=== PATIENT | female | born 1980 | race Caucasian/White ===

== ENCOUNTER 2017-10-12 05:10 | Emergency (ER) | payer OTHER ==
[~2017-10-12] VITALS: Ht 160 cm; Wt 106.6 kg
[~2017-10-12 05:10] MED LIST: ALLEGRA ALLERG180 MG PO; AUGMENTIN 875-1 EACH PO; AZITHROMYCIN250 MG PO; CELEXA20 MG PO; CHERATUSSIN AC118 ML PO; COMBIVENT RESPIM4 GM INH; GUAIATUSSIN AC10 ML PO; IBUPROFEN800 MG PO; KEFLEX500 MG PO; MELATONIN3 MG PO; MUCINEX FAST-M1 EAC9 PO; MUCINEX600 MG PO; PERCOCET 5-3251 EACH PO; PREDNISONE20 MG PO; PROVENTIL HFA6.7 GM INH; ROBAXIN-750750 MG PO; TRAMADOL HCL50 MG PO; VITAMIN D250000 UNIT PO; VITAMIN D50000 UNI1 PO
[2017-10-12] MEDS ORDERED: METFORMIN HCL500 MG PO (05:19)
[2017-10-12] MEDS ORDERED: LEVOTHYROXINE25 MCG PO (05:19)
== END 2017-10-12 05:43 | disposition home or self-care (01) ==
LOC: ED 05:10
DX: J11.1 Influenza due to unidentified influenza virus with other respiratory manifestations (principal); J45.909 Unspecified asthma, uncomplicated; Z87.891 Personal history of nicotine dependence; Z88.5 Allergy status to narcotic agent; Z79.899 Other long term (current) drug therapy
CPT/HCPCS: 99282

== ENCOUNTER 2018-10-08 13:29 | Emergency (ER) | payer OTHER ==
[~2018-10-08] VITALS: Ht 160 cm; Wt 102.1 kg
[~2018-10-08 13:29] MED LIST changes: +LEVOTHYROXINE25 MCG PO; +METFORMIN HCL500 MG PO
--- OUTSIDE RECORDS SUMMARY | 2018-10-08 13:32 | XMS ---
PreManage Notification: BRENDAN MOURA Security Blasting Entryman Events No recent Security Events currently on file CRITERIA MET - Group Notification - [facility] - Has Care Guidelines CARE PROVIDERS There are no care providers on record at this time. Guidelines Source: [facility] Guidelines Date: 03/20/2017 Care Coordination: ENCOURAGE PATIENT TO USE PCP FOR FOLLOW UP AND NON-EMERGENT PROBLEMS. GIVE PATIENT THIS ADJUNCT ART HISTORY INSTRUCTOR NAME AND NUMBER FOR HELP AND QUESTIONS. KRISTIE BELLO, HORTICULTURAL WORKERABSTRACT WRITER [facility] [phone] E.D. VISIT COUNT (12 MO.) 2 [facility]. TOTAL 2 NOTE: Visits indicate total known visits. ED/UCC VISIT TRACKING (12 MO.) 10/08/2018 13:29 [place]EL [place] TYPE: Emergency COMPLAINT: - MEDICAL CLEARANCE 10/12/2017 05:11 [place] TYPE: Emergency COMPLAINT: - COUGH,FEVER,NAUSEA DIAGNOSES: - Personal history of nicotine dependence - Influenza due to unidentified influenza virus with other respiratory manifestations - Fever, unspecified - Unspecified asthma, uncomplicated - Allergy status to narcotic agent status - Other termite control technician (current) drug therapy INPATIENT VISIT TRACKING (12 MO.) No inpatient visits to display in this time frame [email or web address]
[2018-10-08] MEDS ORDERED: PAXIL20 MG PO (13:41)
== END 2018-10-08 17:13 | disposition home or self-care (01) ==
LOC: ED 13:29
DX: Z00.8 Encounter for other general examination (principal); F41.9 Anxiety disorder, unspecified; J45.909 Unspecified asthma, uncomplicated; F17.200 Nicotine dependence, unspecified, uncomplicated; Z88.5 Allergy status to narcotic agent; Z79.899 Other long term (current) drug therapy
CPT/HCPCS: 36415; 80053; 80176; 81001; 84439; 84443; 84703; 85025; 99284; G0480

== ENCOUNTER 2019-08-17 09:57 | Emergency (ER) | payer OTHER ==
[~2019-08-17] VITALS: Ht 160 cm; Wt 102.1 kg
--- OUTSIDE RECORDS SUMMARY | ~2019-08-17 | XMS | Encounter Summary ---
Demographics + + + | Address | [address] | | | [place] [address] | + + + | Home Phone | | + + + | Preferred Language | Unknown | + + + | Marital Status | Single | + + + | Yarsani Affiliation | Unknown | + + + | Race | Unknown | + + + | Ethnic Group | Unknown | + + + Author + + + | Author | [facility] | | | and Freddyana | + + + | Organization | [facility] | | | and Freddyana | + + + | Address | Unknown | + + + | Phone | Unavailable | + + + Support + + +---------+ + | Name | Relationship | Address | Phone | + + +---------+ + | Latrice Rodríguez | ECON | Unknown | | + + +---------+ + | Chyna Mesa | ECON | Unknown | | + + +---------+ + Care Team Providers + +------+ + | Care Grassroots Organizer Name | Role | Phone | + +------+ + PCP | Unavailable | + +------+ + Encounter Details +--------+ + + + + | Date | Type | Department | Care Team | Description | +--------+ + + + + | 02/14/ | Hospital | [facility] | | | | 2008 | Encounter | MED CTR MP INTRA OP | | | | | | [address] | | | | | | [place] | | | | | | [address] | | | | | | [phone] | | | +--------+ + + + + Social History + +-------+ +--------+------+ | Tobacco Use | Types | Packs/Day | Years | Date | | | | | Used | | + +-------+ +--------+------+ | Never Assessed | | | | | + +-------+ +--------+------+ + + + | Sex Assigned at | Date Recorded | | | | + + + | Not on file | | + + + + + + + | Job Start Date | Occupation | Industry | + + + + | Not on file | Not on file | Not on file | + + + + + + + + | Travel History | Travel Start | Travel End | + + + + + + | No recent travel history available. | + + documented as of this encounter Plan of Treatment Not on filedocumented as of this encounter Visit Diagnoses Not on filedocumented in this encounter"
--- OUTSIDE RECORDS SUMMARY | ~2019-08-17 | XMS | Encounter Summary ---
Demographics + + + | Address | [address] | | | [place] [address] | + + + | Home Phone | | + + + | Preferred Language | Unknown | + + + | Marital Status | Single | + + + | Sabianist Affiliation | Unknown | + + + | Race | Unknown | + + + | Ethnic Group | Unknown | + + + Author + + + | Author | [facility] | | | and [place]dy[place] | + + + | Organization | [facility] | | | and Freddyana [...] Team Providers + +------+ + | Care Pantry Worker Name | Role | Phone | + +------+ + PCP | Unavailable | + +------+ + Encounter Details +--------+ + + + + | Date | Type | Department | Care Team | Description | +--------+ + + + + | 12/07/ | Hospital | [facility] | Sergio Del Rosario, | | | 2006 | Encounter | MED CTR XRAY [address] | MD [address] | | | | | [place] | [place], [place] | | | | | [place] [address] | [id number] | | | | | [phone] | | | +--------+ + + + [...]
--- OUTSIDE RECORDS SUMMARY | ~2019-08-17 | XMS | Encounter Summary ---
Demographics + + + | Address | [address] | | | [place] [address] | + + + | Home Phone | | + + + | Preferred Language | Unknown | + + + | Marital Status | Single | + + + | Hoahaoism Affiliation | Unknown | + + + | Race | Unknown | + + + | Ethnic Group | Unknown | + + + Author + + + | Author | [facility] | | | and Freddyana | + + + | Organization | [facility] | | | and Freddyana [...] Team Providers + +------+ + | Care Quality Assurance Monitor Body Name | Role | Phone | + +------+ + PCP | Unavailable | + +------+ + Encounter Details +--------+ + + + + | Date | Type | Department | Care Team | Description | +--------+ + + + + | 12/07/ | Hospital | [facility] | Sergio Del Rosario, | | | 2006 | Encounter | MED CTR XRAY [address] | MD [address] | | | | | [place] | [place], [place] | | | | | [place] [address] | [id number] | | | | | [phone] | | | +--------+ + + + [...]
--- OUTSIDE RECORDS SUMMARY | ~2019-08-17 | XMS | Encounter Summary ---
Demographics + + + | Address | [address] | | | [place] [address] | + + + | Home Phone | | + + + | Preferred Language | Unknown | + + + | Marital Status | Single | + + + | Methodist Affiliation | Unknown | + + + | Race | Unknown | + + + | Ethnic Group | Unknown | + + + Author + + + | Author | [facility] | | | and Freddyana | + + + | Organization | [facility] | | | and [...] Team Providers + +------+ + | Care School Program Director Name | Role | Phone | + +------+ + PCP | Unavailable | + +------+ + Encounter Details +--------+ + + + + | Date | Type | Department | Care Team | Description | +--------+ + + + + | 12/04/ | Hospital | [facility] | Sergio Del Rosario, | | | 2006 | Encounter | MED CTR GENERIC OP | MD [address] | | | | | CONV DEPT [address] | [place], [place] | | | | | [place], | [address] | | | | | [place] [address] | | | | | | [phone] | | | +--------+ + + + [...]
--- OUTSIDE RECORDS SUMMARY | ~2019-08-17 | XMS | Encounter Summary ---
Demographics + + + | Address | [address] | | | [place] [address] | + + + | Home Phone | | + + + | Preferred Language | Unknown | + + + | Marital Status | Single | + + + | Spiritism Affiliation | Unknown | + + + | Race | Unknown | + + + | Ethnic Group | Unknown | + + + Author + + + | Author | [facility] | | | and Freddy[place] | + + + | Organization | [facility] | | | and Freddyana [...] Team Providers + +------+ + | Care Process Improvement Manager Name | Role | Phone | + +------+ + PCP | Unavailable | + +------+ + Encounter Details +--------+ + + + + | Date | Type | Department | Care Team | Description | +--------+ + + + + | 12/04/ | Hospital | [facility] | Sregio Del Rosario, | | | 2006 | Encounter | MED CTR GENERIC OP | MD [address] | | | | | CONV DEPT [address] | [place], [place] | | | | | [place], | [address] | | | | | [place] [address] | | | | | | [phone] | | | +--------+ + + + [...]
--- OUTSIDE RECORDS SUMMARY | ~2019-08-17 | XMS | Encounter Summary ---
Demographics + + + | Address | [address] | | | [place] [address] | + + + | Home Phone | | + + + | Preferred Language | Unknown | + + + | Marital Status | Single | + + + | Confucianist Affiliation | Unknown | + + + | Race | Unknown | + + + | Ethnic Group | Unknown | + + + Author + + + | Author | [facility] | | | and Freddyana | + + + | Organization | [facility] | | | and Freddyana [...] Team Providers + +------+ + | Care Phytopathologist Name | Role | Phone | + +------+ + PCP | Unavailable | + +------+ + Encounter Details +--------+ + + + + | Date | Type | Department | Care Team | Description | +--------+ + + + + | 11/20/ | Hospital | [facility] | Sergio Del Rosario, | | | 2006 | Encounter | MED CTR XRAY [address] | MD [address] | | | | | [place] | [place], [place] | | | | | [place] [address] | [address] | | | | | [phone] | | | +--------+ + + + [...]
--- OUTSIDE RECORDS SUMMARY | ~2019-08-17 | XMS | Encounter Summary ---
Demographics + + + | Address | [address] | | | [place] [address] | + + + | Home Phone | | + + + | Preferred Language | Unknown | + + + | Marital Status | Single | + + + | Rastafarian Affiliation | Unknown | + + + | Race | Unknown | + + + | Ethnic Group | Unknown | + + + Author + + + | Author | [facility] | | | and [place]dy[place] | + + + | Organization | [facility] | | | and Freddyana [...] Team Providers + +------+ + | Care Retail Financial Analyst Name | Role | Phone | + +------+ + PCP | Unavailable | + +------+ + Encounter Details +--------+ + + + + | Date | Type | Department | Care Team | Description | +--------+ + + + + | 08/27/ | Hospital | [facility] | Bladimir Robison | | | 2004 | Encounter | [facility] | MD [address] | | | | | C[address] [place], | | | | | [address] | [place] [address] | | | | | [place], [place] | [phone] | | | | | [address] | | | | | | [phone] | | | +--------+ + + + [...]
--- OUTSIDE RECORDS SUMMARY | ~2019-08-17 | XMS | Encounter Summary ---
Demographics + + + | Address | [address] | | | [place] [address] | + + + | Home Phone | | + + + | Preferred Language | Unknown | + + + | Marital Status | Single | + + + | Episcopal Affiliation | Unknown | + + + | Race | Unknown | + + + | Ethnic Group | Unknown | + + + Author + + + | Author | [facility] | | | and [place]dy[place] | + + + | Organization | [facility] | | | and Freddyana [...] Team Providers + +------+ + | Care Seamless Tube Roller Name | Role | Phone | + +------+ + PCP | Unavailable | + +------+ + Encounter Details +--------+ + + + + | Date | Type | Department | Care Team | Description | +--------+ + + + + | 08/25/ | Hospital | [facility] | Joni Avilez, | | | 2003 | Encounter | [facility] | MD [place] | | | | | [place] [address] [place] | | | | | [address] | [address] | | | | | [place] | | | | | | [address] | | | | | | [phone] | | | +--------+ + + + [...]
--- OUTSIDE RECORDS SUMMARY | ~2019-08-17 | XMS | Encounter Summary ---
Demographics + + + | Address | [address] | | | [place] [address] | + + + | Home Phone | | + + + | Preferred Language | Unknown | + + + | Marital Status | Single | + + + | Jew Affiliation | Unknown | + + + | Race | Unknown | + + + | Ethnic Group | Unknown | + + + Author + + + | Author | [facility] | | | and Freddy[place] | + + + | Organization | [facility] | | | and Freddyana [...] Team Providers + +------+ + | Care Aed Trainer Name | Role | Phone | + +------+ + PCP | Unavailable | + +------+ + Encounter Details +--------+ + + + + | Date | Type | Department | Care Team | Description | +--------+ + + + + | 01/22/ | Hospital | [facility] | Sergio Del Rosario, | | | 2006 | Encounter | MED CTR GENERIC OP | MD [address] | | | | | CONV DEPT [address] | [place], [place] | | | | | [place], | [address] | | | | | [place] [address] | | | | | | [phone] | | | +--------+ + + + [...]
--- OUTSIDE RECORDS SUMMARY | ~2019-08-17 | XMS | Encounter Summary ---
Demographics + + + | Address | [address] | | | [place] [address] | + + + | Home Phone | | + + + | Preferred Language | Unknown | + + + | Marital Status | Single | + + + | Catholic Affiliation | Unknown | + + + | Race | Unknown | + + + | Ethnic Group | Unknown | + + + Author + + + | Author | [facility] | | | and Freddy[place] | + + + | Organization | [facility] | | | [...] Team Providers + +------+ + | Care Superintendent Marine Name | Role | Phone | + +------+ + PCP | Unavailable | + +------+ + Encounter Details +--------+ + + + + | Date | Type | Department | Care Team | Description | +--------+ + + + + | 11/20/ | Hospital | [facility] | Sergio Del Rosario, | | | 2006 | Encounter | MED CTR XRAY [address] | MD [address] | | | | | [place] | [place], [place] | | | | | [place] [address] | [address] | | | | | [phone] | | | +--------+ + + + [...]
--- OUTSIDE RECORDS SUMMARY | ~2019-08-17 | XMS | Encounter Summary ---
Demographics + + + | Address | [address] | | | [place] [address] | + + + | Home Phone | | + + + | Preferred Language | Unknown | + + + | Marital Status | Single | + + + | Roman Catholic Affiliation | Unknown | + + + | Race | Unknown | + + + | Ethnic Group | Unknown | + + + Author + + + | Author | [facility] | | | and Freddyana | + + + | Organization | [facility] | [...] Team Providers + +------+ + | Care Credit Administration Officer Name | Role | Phone | + +------+ + PCP | Unavailable | + +------+ + Encounter Details +--------+ + + + + | Date | Type | Department | Care Team | Description | +--------+ + + + + | 01/22/ | Hospital | [facility] | Sergio Del Rosario, | | | 2006 | Encounter | MED CTR GENERIC OP | MD [address] | | | | | CONV DEPT [address] | [place], [place] | | | | | [place], | [address] | | | | | [place] [address] | | | | | | [phone] | | | +--------+ + + + [...]
--- OUTSIDE RECORDS SUMMARY | ~2019-08-17 | XMS | Encounter Summary ---
Demographics + + + | Address | [address] | | | [place] [address] | + + + | Home Phone | | + + + | Preferred Language | Unknown | + + + | Marital Status | Single | + + + | Denominational Affiliation | Unknown | + + + | Race | Unknown | + + + | Ethnic Group | Unknown | + + + Author + + + | Author | [facility] | | | and Freddyana | + + + | Organization | [facility] | | | and [...] Team Providers + +------+ + | Care Grinding And Polishing Laborer Name | Role | Phone | + [...] | | | | [address] | [place] [address] | | | | | [place], [place] | [phone] | | | | | [address] | | | | | | [phone] | | | +--------+ + + + [...]
--- OUTSIDE RECORDS SUMMARY | ~2019-08-17 | XMS | Encounter Summary ---
Demographics + + + | Address | [address] | | | [place] [address] | + + + | Home Phone | | + + + | Preferred Language | Unknown | + + + | Marital Status | Single | + + + | Mu-Ism Affiliation | Unknown | + + + | Race | Unknown | + + + | Ethnic Group | Unknown | + + + Author + + + | Author | [facility] | | | and Freddyana | + + + | Organization | [facility] | | | and [place]dyana | [...] Team Providers + +------+ + | Care Hot Box Spotter Name | Role | Phone | + +------+ + PCP | Unavailable | + +------+ + Encounter Details +--------+ + + + + | Date | Type | Department | Care Team | Description | +--------+ + + + + | 02/14/ | Hospital | [facility] | | | | 2008 | Encounter | MED CTR MP INTRA OP | | | | | | [address] | | | | | | [place] | | | | | | [address] | | | | | | [phone] | | | +--------+ + + + [...]
--- OUTSIDE RECORDS SUMMARY | ~2019-08-17 | XMS | Clinical Summary ---
Demographics + + + | Address | [address] | | | [place] [address] | + + + | Home Phone | | + + + | Preferred Language | Unknown | + + + | Marital Status | Single | + + + | Oriental Orthodox Affiliation | Unknown | + + + | Race | Unknown | + + + | Ethnic Group | Unknown | + + + Author + + + | Author | [facility] | | | and Freddyana | + + + | Organization | [facility] | | | and Freddyana | [...] Team Providers + +------+ + | Care Lapel Baster Name | Role | Phone | + [...] recent travel history available. | + + Last Filed Vital Signs Not on file Plan of Treatment + + + + + | Health Maintenance | Due Date | Last Done | Comments | + + + + + | Vaccine: | | | | | Dtap/Tdap/Td (1 - | 0 | | | | Tdap) | | | | + + + + + | Cervical Cancer | | | | | Screening (Pap) | 1 | | | + + + + + | Vaccine: Influenza | | | | | (#1) | 9 | | | + + + + + Results Not on filefrom Last 3 Months"
--- OUTSIDE RECORDS SUMMARY | ~2019-08-17 | XMS | Clinical Summary ---
Demographics + + + | Address | [address] | | | [place] [address] | + + + | Home Phone | | + + + | Preferred Language | Unknown | + + + | Marital Status | Single | + + + | Judaism Affiliation | Unknown | + + + | Race | Unknown | + + + | Ethnic Group | Unknown | + + + Author + + + | Author | [facility] | | | and Freddyana | + + + | Organization | [facility] | | | and [...] Team Providers + +------+ + | Care Sheet Rock Layer Name | Role | Phone | + [...]
--- OUTSIDE RECORDS SUMMARY | ~2019-08-17 | XMS | Encounter Summary ---
Demographics + + + | Address | [address] | | | [place] [address] | + + + | Home Phone | | + + + | Preferred Language | Unknown | + + + | Marital Status | Single | + + + | Tenriism Affiliation | Unknown | + + + | Race | Unknown | + + + | Ethnic Group | Unknown | + + + Author + + + | Author | [facility] | | | and Freddyana | + + + | Organization | [facility] | | | and Freddyana [...] Team Providers + +------+ + | Care Flatwork Presser Name | Role | Phone | + +------+ + PCP | Unavailable | + +------+ + Encounter Details +--------+ + + + + | Date | Type | Department | Care Team | Description | +--------+ + + + + | 08/25/ | Hospital | [facility] | Joni Avilez, | | | 2003 | Encounter | [facility] | MD Sky MOSS | | | | | [place] [address] [place] | | | | | [address] | [address] | | | | | [place] | | | | | | [address] | | | | | | [phone] | | | +--------+ + + + [...]
[~2019-08-17 09:57] MED LIST changes: +PAROXETINE HCL20 MG PO; +PAXIL20 MG PO; +TRAZODONE HCL150 MG PO
[2019-08-17] MEDS ORDERED: METHYLPHENIDATE27 MG PO (10:13)
[2019-08-17] MEDS ORDERED: PROPRANOLOL HCL20 MG PO (10:14)
[2019-08-17] MEDS ORDERED: HYDROXYZINE HCL25 MG PO (10:15)
== END 2019-08-17 16:19 | disposition short-term general hospital (02) ==
LOC: ED 09:57
DX: F32.9 Major depressive disorder, single episode, unspecified (principal); J45.909 Unspecified asthma, uncomplicated; F41.9 Anxiety disorder, unspecified; F17.200 Nicotine dependence, unspecified, uncomplicated; Z88.5 Allergy status to narcotic agent; Z79.899 Other long term (current) drug therapy; Z79.84 Long term (current) use of oral hypoglycemic drugs
CPT/HCPCS: 36415; 80053; 80176; 81001; 84439; 84443; 84703; 85025; 99284; G0480

== ENCOUNTER 2020-05-14 17:05 | Emergency (ER) | payer OTHER ==
[~2020-05-14] VITALS: Ht 160 cm; Wt 102.1 kg
--- OUTSIDE RECORDS SUMMARY | ~2020-05-14 | XMS | Encounter Summary ---
Demographics + + + | Address | [address] | | | [place] [address] | + + + | Home Phone | | + + + | Preferred Language | Unknown | + + + | Marital Status | Single | + + + | Christianity Affiliation | Unknown | + + + | Race | White | + + + | Ethnic Group | Unknown | + + + Author + + + | Author | [facility] | | | and Freddy[place] | + + + | Organization | [facility] | | | and Freddyana [...] Team Providers + +------+ + | Care Cement Contractor Name | Role | Phone | + +------+ + PCP | Unavailable | + +------+ + Encounter Details +--------+ + + + + | Date | Type | Department | Care Team | Description | +--------+ + + + + | 11/20/ | Hospital | [facility] | Sergio Del Rosario, | | | 2006 | Encounter | MED CTR XRAY [address] | MD [address] | | | | | [place] | [place], [place] | | | | | [place] [address] | [address] | | | | | [phone] | | | +--------+ + + + [...] on file | | + + + documented as of this encounter Plan of Treatment Not on filedocumented as of this encounter Visit Diagnoses Not on filedocumented in this encounter"
--- OUTSIDE RECORDS SUMMARY | ~2020-05-14 | XMS | Encounter Summary ---
Demographics + + + | Address | [address] | | | [place] [address] | + + + | Home Phone | | + + + | Preferred Language | Unknown | + + + | Marital Status | Single | + + + | Holiness Affiliation | Unknown | + + + | Race | White | + + + | Ethnic Group | Unknown | + + + Author + + + | Author | [facility] | | | and Freddyana | + + + | Organization | [facility] | | | and [place] | + + + | Address | Unknown | + + + | Phone | Unavailable | + + + Support + + +---------+ + | Name | Relationship | Address | Phone | + + +---------+ + | Latrice Rodríguez | ECON | Unknown | | + + +---------+ + | Chyna Meas | ECON | Unknown | | + + +---------+ + Care Team Providers + +------+ + | Care Environmental Aide Name | Role | Phone | + +------+ + PCP | Unavailable | + +------+ + Encounter Details +--------+ + + + + | Date | Type | Department | Care Team | Description | +--------+ + + + + | 12/07/ | Hospital | [facility] | Sergio Del Rosario, | | | 2006 | Encounter | MED CTR XRAY [address] | MD [address] | | | | | [place] | [place], [place] | | | | | [place] [address] | [address] | | | | | [phone] | | | +--------+ + + + [...]
--- OUTSIDE RECORDS SUMMARY | ~2020-05-14 | XMS | Encounter Summary ---
Demographics + + + | Address | [address] | | | [place] [address] | + + + | Home Phone | | + + + | Preferred Language | Unknown | + + + | Marital Status | Single | + + + | Congregational Affiliation | Unknown | + + + | Race | White | + + + | Ethnic Group | Unknown | + + + Author + + + | Author | [facility] | | | and Freddy[place] | + + + | Organization | [facility] | | | and Freddy[place] | [...] Team Providers + +------+ + | Care Technology Architect Name | Role | Phone | + +------+ + PCP | Unavailable | + +------+ + Encounter Details +--------+ + + + + | Date | Type | Department | Care Team | Description | +--------+ + + + + | 01/22/ | Hospital | [facility] | Sergio Del Rosario, | | | 2006 | Encounter | MED CTR GENERIC OP | MD [address] | | | | | CONV DEPT [address] | [place], [place] | | | | | [place], | [address] | | | | | [place] [address] | | | | | | [phone] | | | +--------+ + + + [...]
--- OUTSIDE RECORDS SUMMARY | ~2020-05-14 | XMS | Encounter Summary ---
Demographics + + + | Address | [address] | | | [place] [address] | + + + | Home Phone | | + + + | Preferred Language | Unknown | + + + | Marital Status | Single | + + + | Amish Affiliation | Unknown | + + + | Race | White | + + + | Ethnic Group | Unknown | + + + Author + + + | Author | [facility] | | | and [place] | + + + | Organization | [facility] | | | and [...] Team Providers + +------+ + | Care Social Science Manager Name | Role | Phone | + +------+ + PCP | Unavailable | + +------+ + Encounter Details +--------+ + + + + | Date | Type | Department | Care Team | Description | +--------+ + + + + | 12/04/ | Hospital | [facility] | Sregio Del Rosario, | | | 2006 | Encounter | MED CTR GENERIC OP | MD [address] | | | | | CONV DEPT [address] | [place], [place] | | | | | [place], | [address] | | | | | [place] [address] | | | | | | [phone] | | | +--------+ + + + [...]
--- OUTSIDE RECORDS SUMMARY | ~2020-05-14 | XMS | Clinical Summary ---
Demographics + + + | Address | [address] | | | [place] [address] | + + + | Home Phone | | + + + | Preferred Language | Unknown | + + + | Marital Status | Single | + + + | Congregational Affiliation | Unknown | + + + | Race | White | + + + | Ethnic Group | Unknown | + + + Author + + + | Author | [facility] | | | and [place] | + + + | Organization | [facility] | | | and [place] | + + + | Address | Unknown | + + + | Phone | Unavailable | + + + Support + + +---------+ + | Name | Relationship | Address | Phone | + + +---------+ + | Latrice Rodríguez | ECON | Unknown | | + + +---------+ + | Chyna Cisseklaus | ECON | Unknown | | + + +---------+ + Care Team Providers + +------+ + | Care Food Service Lead Name | Role | Phone | + +------+ + PCP | Unavailable | + +------+ + Allergies Not on File Medications Not on file Active Problems Not on file Social History + +-------+ +--------+------+ | Tobacco [...] on file | | + + + Last Filed Vital Signs Not on file Plan of Treatment + + +-------+ + | Health Maintenance | Due Date | Last | Comments | | | | Done | | + + +-------+ + | Vaccine: | | | | | Dtap/Tdap/Td (1 - | 0 | | | | Tdap) | | | | + + +-------+ + | Cervical Cancer | | | | | Screening (Pap) | 1 | | | + + +-------+ + | Vaccine: Influenza | | | | | (#1) | 0 | | | + + +-------+ + Results Not on filefrom Last 3 Months"
--- OUTSIDE RECORDS SUMMARY | ~2020-05-14 | XMS | Encounter Summary ---
Demographics + + + | Address | [address] | | | [place] [address] | + + + | Home Phone | | + + + | Preferred Language | Unknown | + + + | Marital Status | Single | + + + | Caodaism Affiliation | Unknown | + + + | Race | White | + + + | Ethnic Group | Unknown | + + + Author + + + | Author | [facility] | | | and [place] | + + + | Organization | [facility] | | | and [...] Team Providers + +------+ + | Care Alloy Weigher Name | Role | Phone | + +------+ + PCP | Unavailable | + +------+ + Encounter Details +--------+ + + + + | Date | Type | Department | Care Team | Description | +--------+ + + + + | 02/14/ | Hospital | [facility] | | | | 2008 | Encounter | MED CTR MP INTRA OP | | | | | | [address] | | | | | | [place] | | | | | | [address] | | | | | | [phone] | | | +--------+ + + + [...]
--- OUTSIDE RECORDS SUMMARY | ~2020-05-14 | XMS | Encounter Summary ---
Demographics + + + | Address | [address] | | | [place] [address] | + + + | Home Phone | | + + + | Preferred Language | Unknown | + + + | Marital Status | Single | + + + | Scientologist Affiliation | Unknown | + + + | Race | White | + + + | Ethnic Group | Unknown | + + + Author + + + | Author | [facility] | | | and [place] | + + + | Organization | [facility] | | | and [place] | [...] Team Providers + +------+ + | Care Graduate Research Assistant Name | Role | Phone | + [...] [id number] | | | | | [place] [address] [place], | | | | | [address] | [place] [address] | | | | | [place], [place] | [phone] | | | | | [address] | | | | | | [phone] | | | +--------+ + + + [...]
--- OUTSIDE RECORDS SUMMARY | ~2020-05-14 | XMS | Encounter Summary ---
Demographics + + + | Address | [address] | | | [place] [address] | + + + | Home Phone | | + + + | Preferred Language | Unknown | + + + | Marital Status | Single | + + + | Baptism Affiliation | Unknown | + + + | Race | White | + + + | Ethnic Group | Unknown | + + + Author + + + | Author | [facility] | | | and [place] | + + + | Organization | [facility] | | | and [place] [...] Team Providers + +------+ + | Care Meat Grinder Name | Role | Phone | + +------+ + PCP | Unavailable | + +------+ + Encounter Details +--------+ + + + + | Date | Type | Department | Care Team | Description | +--------+ + + + + | 08/25/ | Hospital | [facility] | Joni Avilez, | | | 2003 | Encounter | [facility] | MD [place] | | | | | [place] [address] [place] | | | | | [address] | [id number] | | | | | [place] | | | | | | [address] | | | | | | [phone] | | | +--------+ + + + [...]
[~2020-05-14 17:05] MED LIST changes: +HYDROXYZINE HCL25 MG PO; +METHYLPHENIDATE27 MG PO; +PROPRANOLOL HCL20 MG PO
== END 2020-05-15 10:50 ==
LOC: ED 17:05
DX: F32.9 Major depressive disorder, single episode, unspecified (principal); F41.9 Anxiety disorder, unspecified; J45.909 Unspecified asthma, uncomplicated; J42 Unspecified chronic bronchitis; F17.200 Nicotine dependence, unspecified, uncomplicated; Z88.6 Allergy status to analgesic agent; Z79.899 Other long term (current) drug therapy
CPT/HCPCS: 80053; 80176; 81001; 84443; 84703; 85025; 99284; G0480

== ENCOUNTER 2021-01-11 14:59 | Emergency (ER) | payer OTHER ==
[~2021-01-11] VITALS: Ht 160 cm; Wt 111.1 kg
== END 2021-01-11 16:40 | disposition home or self-care (01) ==
LOC: ED 14:59
DX: S93.602A Unspecified sprain of left foot, initial encounter (principal); X50.1XXA Overexertion from prolonged static or awkward postures, initial encounter; J45.909 Unspecified asthma, uncomplicated; F17.200 Nicotine dependence, unspecified, uncomplicated; Z88.5 Allergy status to narcotic agent; Z79.899 Other long term (current) drug therapy; Z79.84 Long term (current) use of oral hypoglycemic drugs
CPT/HCPCS: 73630; 99283-25

== ENCOUNTER 2025-04-02 06:16 | Emergency (ER) | payer OTHER ==
[~2025-04-02] VITALS: Ht 160 cm; Wt 118.7 kg
[2025-04-02] MEDS ORDERED: ALBUTEROL/IPRATROPIUM 3 ML NEB INH PRN (06:45)
[2025-04-02 07:29] LABS: ALT (SGPT) 27 U/L (14-59); AST (SGOT) 29 U/L (15-37); GLOMERULAR FILTRATION RATE,EST 66 mL/min (>60); PROTEIN, TOTAL 7.8 g/dL (6.4-8.2); UREA NITROGEN 17 mg/dL (7-18)
[2025-04-02 07:38] LABS: BASOPHILS 0.6 % (0.1-1.2); EOSINOPHILS 3.4 % (0.7-5.8); LYMPHOCYTES 42.1 % (19.3-51.7); MCH 30.5 PG (25.6-32.2); MCHC 34.4 g/dL (32.2-35.5); MCV 88.5 fL (79.4-94.8); MONOCYTES 8.8 % (4.7-12.5); NEUTROPHILS 44.6 % (34.0-71.1); RBC 5.22 M/uL (3.93-5.22)
[2025-04-02] MEDS ORDERED: PREDNISONE20 MG PO (07:50)
[2025-04-02] MEDS ORDERED: VENTOLIN HFA18 GM INH (07:50)
[2025-04-02 07:55] VITALS: BP 139/100
--- NOTE | 2025-04-02 13:45 | EKG ---
[facility] [address] [facility] [facility] [place] [address] Signed Normal sinus rhythm Incomplete right bundle branch block Borderline ECG No previous ECGs available Confirmed by Darien Leon MD ([id number]) on 04/02/2025 1:45:30 PM Electronically Signed By: DARIEN LEON MD 04/02/25 1345 PATIENT NAME: BRENDAN MOURA UMBERTO Electrocardiogram DATE OF : 82 PHYSICIAN: DARIEN LEON MD REPORT #: [id number] REPORT IS CONFIDENTIAL AND NOT TO BE RELEASED WITHOUT AUTHORIZATION
== END 2025-04-02 07:57 | disposition home or self-care (01) ==
LOC: ED 06:16
PROVIDERS: Emergency Medicine
DX: J45.901 Unspecified asthma with (acute) exacerbation (principal); F17.200 Nicotine dependence, unspecified, uncomplicated; Z79.84 Long term (current) use of oral hypoglycemic drugs; Z79.899 Other long term (current) drug therapy; Z88.5 Allergy status to narcotic agent
CPT/HCPCS: 36415; 71045; 80053; 83735; 84484; 84703; 85025; 93005; 93010; 94640; 99285-25